=== PATIENT | female | born 1965 | race Caucasian/White ===

== ENCOUNTER 2022-01-22 15:15 | Emergency (ER) | payer BC ==
[~2022-01-22] VITALS: Ht 167.6 cm; Wt 90.9 kg
[~2022-01-22 15:15] MED LIST: AMBIEN 5MG TABLE5 MG PO; HYZAAR 25 MG-101 TAB PO; K-TAB10 IV; KLONOPIN 0.5MG0.5 MG PO
[2022-01-22 15:16] VITALS: TEMP 98.4
[2022-01-22 15:48] LABS: BASO % 0.1 % (0.0-2.0); GRAN # 4.8 K/mm3 (1.4-6.5); GRAN % 62.7 % (42.2-75.2); HEMATOCRIT 40.5 % (37.0-47.0); LYMPH # 2.3 K/mm3 (1.2-3.4); LYMPH % 30.5 % (20.0-51.0); MEAN CELL VOLUME 82 fl (80.0-100.0); MEAN CORPUSCULAR HEMOGLOBIN 28 pg (27-31); MEAN CORPUSCULAR HGB CONC 35 g/dl (33.0-37.0); MEAN PLATELET VOLUME 10.4 fl (7.4-10.4); MONO # 0.5 K/mm3 (0.1-0.6); MONO % 6.3 % (1.7-9.3); PLATELET COUNT 235 K/mm3 (130-400); RED BLOOD COUNT 4.96 M/mm3 (4.10-5.30); REDCELL DISTRIBUTION WIDTH-CV 13.2 % (11.5-14.5)
[2022-01-22 16:03] LABS: ALANINE AMINOTRANSFERASE 18 U/L (0-55); ALKALINE PHOSPHATASE 84 U/L (40-150); ANION GAP 9 mmol/L (7-16); AST,SGOT 13 U/L (5-34); BILIRUBIN,TOTAL 0.3 mg/dL (0.2-1.2); BLOOD UREA NITROGEN 10 mg/dL (10-20); CALCIUM 9.2 mg/dL (8.4-10.2); CARBON DIOXIDE 25 mmol/L (22-29); CHLORIDE 107 mmol/L (98-107); CREATININE, serum 0.77 mg/dL (0.57-1.11); GLUCOSE 95 mg/dL (70-99); POTASSIUM 4.2 mmol/L (3.5-4.5); SODIUM 141 mmol/L (136-145); TOTAL PROTEIN 6.9 gm/dL (6.2-8.1)
[2022-01-22 16:03] LABS: TRICYCLIC ANTIDEPRESS URINE NEGATIVE
[2022-01-22 16:04] LABS: ACETAMINOPHEN < 1.0 ug/mL (10-30); ALCOHOL(ethanol),MEDICAL < 10 mg/dL (0-10); SALICYLATE < 5.0 mg/dL (15.0-30.0)
[2022-01-22 23:06] VITALS: BP 124/78; PULSE 84
== END 2022-01-22 23:06 | disposition home or self-care (01) ==
LOC: COL.ER 15:15
PROVIDERS: Nurse Practitioner Primary Care
DX: T42.6X1A Poisoning by other antiepileptic and sedative-hypnotic drugs, accidental (unintentional), initial encounter (principal)
CPT/HCPCS: J7030